=== PATIENT | female | born 1975 | race Caucasian/White ===

== ENCOUNTER → 2024-02-28 07:39 | Outpatient (CLI) | payer OTHER, SELFPAY ==
--- NOTE | 2024-02-28 07:43 | DI.MRI.S_ITS ---
PROCEDURE: MR LUMBAR SPINE WO CON INDICATIONS: Intervertebral disc disorders with radiculopathy, TECHNIQUE: Noncontrast sagittal T1 spin echo and T2 fast echo, sagittal STIR, and T2 fast spin echo through the lumbar spine. In cases with scoliosis, additional coronal T2 fast spin echo may be performed. COMPARISON: [facility], MR, MR LUMBAR SPINE WO CON, 06/26/2015, 11:35. FINDINGS: Image quality: Excellent. Alignment and Curvature: Straightening of the normal lumbar lordosis. Bone Marrow: Modic type 1 degenerative endplate changes at L4-5. Marrow is of normal overall signal. No acute vertebral body compression fractures. Spinal Cord: Conus medullaris terminates at the L1 level. Visualized cord demonstrates normal signal and size. Paraspinous Soft Tissues: No paravertebral masses. T12-L1: Normal appearance. L1-L2: Normal appearance. L2-L3: Normal appearance. L3-L4: Disc desiccation and mild height loss. Minimal disc bulge. No central canal or neural foraminal stenosis. L4-L5: Severe disc desiccation height loss is progressed compared to prior. Mild diffuse disc bulge and small superimposed central disc protrusion. Facet arthropathy. No central canal stenosis. Moderate left neural foraminal stenosis is progressed. Stable mild right neural foraminal stenosis. L5-S1: Mild posterior disc bulge and posterior annular tear. Mild facet arthropathy. No central canal stenosis. Mild bilateral neural foraminal stenosis. IMPRESSION: 1. Multilevel degenerative changes of the lumbar spine with progression at L4-5. 2. Severe disc desiccation and height loss at L4-5. Moderate left and mild right neural foraminal stenosis. No central stenosis. Dictated by: Yonatan Herrera M.D. on 02/28/2024 at 10:48 Approved by: Yonatan Herrera M.D. on 02/28/2024 at 10:52
== END ==
LOC: MRI 07:41
PROVIDERS: PCP Nurse Practitioner Family; Referring Provider Physical Medicine & Rehabilitation; Visit Provider Physical Medicine & Rehabilitation
DX: M51.16 Intervertebral disc disorders with radiculopathy, lumbar region (principal); M47.26 Other spondylosis with radiculopathy, lumbar region; M47.27 Other spondylosis with radiculopathy, lumbosacral region; M48.061 Spinal stenosis, lumbar region without neurogenic claudication; M48.07 Spinal stenosis, lumbosacral region
CPT/HCPCS: 72148